=== PATIENT | male | born 1990 | race Caucasian/White ===

== ENCOUNTER 2020-10-05 02:51 | Emergency (ER) | payer SELFPAY ==
--- OUTSIDE RECORDS SUMMARY | 2020-10-05 02:53 | XMS REPORT | Continuity of Care Document ---
:1990 Author Organization [facility] t Address [address] [place] [address] Care Team Providers Name Role Phone Luis E Powers Attending Clinician Problems This patient has no known problems. Allergies, Adverse Reactions, Alerts This patient has no known allergies or adverse reactions. Medications This patient has no known medications. Procedures This patient has no known procedures. Encounters Start End Encounter Admission Attending Care Care Encounter Source Date/Time Date/Time Type Type Clinicians Facility Department ID 2020-08-11 2020-08-11 Emergency GIULIA Sherman [id number] 19:07:00 21:54:00 Macie Garcia [id number] [place] [id number] [place] [id number] Results This patient has no known results.
--- NOTE | 2020-10-05 04:40 | ER ---
Nurse's Notes [facility] Name: Dustin Escobar Age: 30 yrs Sex: Male : 1990 Arrival Date: 10/05/2020 Time: 02:53 Bed Waiting Private MD: Diagnosis: Presentation: 10/05 03:34 Chief complaint: Patient states: he has had a toothache to lower right jaw since 1400 bb yesterday usually he can manage it with OTC medications but not this time has not been to bed all night. Coronavirus screen: At this time, the client does not indicate any symptoms associated with coronavirus-19. Ebola Screen: No symptoms or risks identified at this time. Initial Sepsis Screen: Does the patient meet any 2 criteria? No. Patient's initial sepsis screen is negative. Does the patient have a suspected source of infection? No. Patient's initial sepsis screen is negative. Risk Assessment: Do you want to hurt yourself or someone else? Patient reports no desire to harm self or others. Onset of symptoms was October 04, 2020. 03:34 Method Of Arrival: Ambulatory 03:34 Acuity: MELONY 4 bb Triage Assessment: 03:36 General: Appears uncomfortable, Behavior is anxious. Pain: Complains of pain in right bb lower jaw Pain currently is 9 out of 10 on a pain scale. EENT: Reports pain in right jaw. Neuro: Level of Consciousness is awake, alert, obeys commands, Oriented to person, place, time, situation. Cardiovascular: Capillary refill < 3 seconds Patient's skin is warm and dry. Respiratory: Respiratory effort is even, unlabored. GI: No signs and/or symptoms were reported involving the gastrointestinal system. Derm: Skin is pink, warm \T\ dry. Musculoskeletal: Circulation, motion, and sensation intact. Historical: - Allergies: 03:36 Hydrocodone-Acetaminophen; bb 03:36 Tegretol; bb - Home Meds: 03:36 None [Active]; bb - PMHx: 03:36 None; bb - PSHx: 03:36 Cholecystectomy; Appendectomy; bb - Immunization history:: Adult Immunizations up to date. - Social history:: Smoking status: Patient reports the use of cigarette tobacco products, smokes one pack cigarettes per day. Patient/guardian denies using alcohol, street drugs. Vital Signs: 03:34 BP 130 / 71; Pulse 72; Resp 16 S; Temp 97.7(O); Pulse Ox 98% on R/A; Weight 113.4 kg bb (R); Height 5 ft. 11 in. (180.34 cm) (R); Pain 9/10; 03:34 Body Mass Index 34.87 (113.40 kg, 180.34 cm) bb ED Course: 02:53 Patient arrived in ED. es 03:36 Triage completed. bb 03:36 Arm band placed on Patient placed in waiting room, Patient notified of wait time. bb 04:39 Patient's name was called from ER lobby. No response. Unable to locate patient. Will bb disposition as left without being seen by a provider. Administered Medications: No medications were administered Outcome: 04:40 Patient left the ED. bb Signatures: Abena Marcial Brenda, RN RN bb
[2020-10-05 04:45] VITALS: BP 130/71; TEMP 97.7; O2SAT 98
== END 2020-10-05 04:40 | disposition left against medical advice (07) ==
LOC: ER 02:51
DX: K08.89 Other specified disorders of teeth and supporting structures (principal); Z53.21 Procedure and treatment not carried out due to patient leaving prior to being seen by health care provider; F17.210 Nicotine dependence, cigarettes, uncomplicated
CPT/HCPCS: 99281